=== PATIENT | female | born 1980 | race Caucasian/White ===

== ENCOUNTER → 2017-06-20 | Outpatient (REF) | payer BC ==
[2017-06-20 19:08] LABS: TOTAL T3 111.7 NG/DL (60.0-181.0)
[2017-06-21 11:03] LABS: CORTISOL AM 23.3 UG/DL (4.3-22.4)
== END ==
LOC: M LAB REF 17:15
DX: E66.9 Obesity, unspecified (principal); R53.83 Other fatigue; R03.0 Elevated blood-pressure reading, without diagnosis of hypertension
CPT/HCPCS: 84480

== ENCOUNTER → 2020-04-03 | Outpatient (CLI) | payer BC ==
[~2020-04-03] MED LIST: IBUP80TA PO; PERCOCET PO; STUACAP PO
[2020-04-03 16:34] LABS: BASO # 0.1 10^3/uL (0.0-0.2); BASO % 0.5 % (0.0-1.0); EOS # 0.2 10^3/uL (0.0-0.5); EOS % 1.5 % (0.0-3.0); HEMOGLOBIN 14.9 g/dl (12.0-15.5); LYMPH # 2.2 10^3/uL (1.5-5.0); LYMPH % 22.1 % (24.0-44.0); MEAN CORPUSCULAR HEMOGLOBIN 29.7 pg (27.0-33.0); MEAN CORPUSCULAR HGB CONC 33.9 g/dl (32.0-36.5); MEAN CORPUSCULAR VOLUME 87.8 fl (80.0-96.0); MONO # 0.6 10^3/uL (0.0-0.8); MONO % 5.7 % (2.0-8.0); NEUTROPHILS # 6.9 10^3/uL (1.5-8.5); NEUTROPHILS % 69.6 % (36.0-66.0); PLATELET COUNT, AUTOMATED 254 10^3/uL (150-450); RED BLOOD COUNT 5.01 10^6/uL (4.00-5.40); WHITE BLOOD COUNT 9.9 10^3/uL (4.0-10.0)
[2020-04-03 17:05] LABS: ALT/SGPT 49 U/L (12-78); BILIRUBIN,TOTAL 0.5 MG/DL (0.2-1.0); BLOOD UREA NITROGEN 9 MG/DL (7-18); CALCIUM LEVEL 9.4 MG/DL (8.5-10.1); CARBON DIOXIDE LEVEL 29 MEQ/L (21-32); CHLORIDE LEVEL 103 MEQ/L (98-107); CHOLESTEROL LEVEL 315 MG/DL (<200); CHOLESTEROL RISK RATIO 6.176 (<5); CREATININE FOR GFR 0.84 MG/DL (0.55-1.30); FREE T4 1.01 NG/DL (0.76-1.46); GLOMERULAR FILTRATION RATE > 60.0 (>60); GLUCOSE, FASTING 83 MG/DL (70-100); HDL CHOLESTEROL 51 MG/DL (>40); LDL CHOLESTEROL 229 MG/DL (<100); NON-HDL-C 264 MG/DL; POTASSIUM SERUM 4.2 MEQ/L (3.5-5.1); SODIUM LEVEL 140 MEQ/L (136-145); TOTAL PROTEIN 7.1 GM/DL (6.4-8.2); TRIGLYCERIDES LEVEL 174 MG/DL (<150)
[2020-04-03 17:08] LABS: THYROID PEROXIDASE ANTIBODY < 28.0 U/ML (<60.0)
[2020-04-03 17:22] LABS: HEMOGLOBIN A1c 5.2 %
== END ==
LOC: M WUC 15:20
PROVIDERS: ATTEND Physician Assistant
DX: E66.8 Other obesity (principal)

== ENCOUNTER → 2020-04-18 | Outpatient (CLI) | payer BC, OTHER ==
--- NOTE | 2020-04-18 13:05 | REP ---
INDICATION: DYSMENORRHEA COMPARISON: None. TECHNIQUE: Transabdominal pelvic ultrasound followed by transvaginal examination for better evaluation of the endometrium and adnexa with color Doppler evaluation of the ovaries. FINDINGS: Bladder is under distended and currently measures 3.4 x 2.6 x 3.3 cm. Normal anteverted uterus measures 8.6 x 4.0 x 5.0 cm. The endometrial complex measures 3.0 mm thickness. No discrete uterine or endometrial abnormalities are appreciated. Bilateral ovaries are normal in appearance and vascularity without evidence for torsion. Right ovary measures 2.3 x 1.4 x 1.7 cm; R I = 0.66. Left ovary measures 2.1 x 1.1 x 1.6 cm; R I = 0.63. No pelvic fluid or adnexal mass lesion. IMPRESSION: Normal pelvic ultrasound <Electronically signed by John Rae > 04/18/20 [id number]
== END ==
LOC: M RAD 12:08
PROVIDERS: ATTEND Physician Assistant
DX: N94.6 Dysmenorrhea, unspecified (principal)

== ENCOUNTER → 2021-02-18 | Outpatient (REF) | LOC: M LABSMTC 11:54 | PROVIDERS: ATTEND Pediatrics | DX: Z11.52 Encounter for screening for COVID-19 (principal) ==

== ENCOUNTER → 2021-03-24 | Outpatient (CLI) | payer OTHER ==
[2021-03-24 16:48] LABS: ALBUMIN 4.2 GM/DL (3.2-5.2); ALT/SGPT 43 U/L (12-78); BILIRUBIN,TOTAL 0.5 MG/DL (0.2-1.0); BLOOD UREA NITROGEN 13 MG/DL (7-18); CALCIUM LEVEL 9.7 MG/DL (8.5-10.1); CARBON DIOXIDE LEVEL 29 MEQ/L (21-32); CHLORIDE LEVEL 103 MEQ/L (98-107); CHOLESTEROL LEVEL 217 MG/DL (<200); CHOLESTEROL RISK RATIO 3.741 (<5); CREATININE FOR GFR 0.88 MG/DL (0.55-1.30); FREE T4 0.96 NG/DL (0.76-1.46); GLOMERULAR FILTRATION RATE > 60.0 (>60); GLUCOSE, FASTING 87 MG/DL (70-100); HDL CHOLESTEROL 58 MG/DL (>40); LDL CHOLESTEROL 122 MG/DL (<100); NON-HDL-C 159 MG/DL; POTASSIUM SERUM 4.1 MEQ/L (3.5-5.1); SODIUM LEVEL 138 MEQ/L (136-145); TOTAL PROTEIN 7.2 GM/DL (6.4-8.2); TRIGLYCERIDES LEVEL 183 MG/DL (<150)
[2021-03-24 16:56] LABS: TOTAL 25(OH) VITAMIN D 26.6 NG/ML (30.0-100.0)
[2021-03-24 16:57] LABS: PROGESTERONE 0.21 NG/ML
[2021-03-24 16:58] LABS: ESTRADIOL < 19.0 PG/ML; FOLLICLE STIMULATING HORMONE 69.8 mIU/mL; LUTEINIZING HORMONE 53.3 mIU/mL; PROLACTIN 6.1 NG/ML
[2021-03-26 23:07] LABS: TESTOSTERONE FREE (DIRECT) 1.4 pg/mL (0.0-4.2)
== END ==
LOC: M WUC 11:09
PROVIDERS: ATTEND Family Medicine
DX: N91.1 Secondary amenorrhea (principal); E78.00 Pure hypercholesterolemia, unspecified; E55.9 Vitamin D deficiency, unspecified

== ENCOUNTER → 2021-05-07 | Outpatient (CLI) | payer OTHER | LOC: M WUC 10:28 | PROVIDERS: ATTEND Family Medicine | DX: M79.672 Pain in left foot (principal) ==

== ENCOUNTER → 2022-01-11 | Outpatient (CLI) | payer OTHER | LOC: M WUC 08:54 | PROVIDERS: ATTEND Nurse Practitioner Adult Health | DX: E28.310 Symptomatic premature menopause (principal) ==

== ENCOUNTER → 2022-05-31 | Outpatient (REF) | payer OTHER | LOC: M LAB REF 17:11 | PROVIDERS: ATTEND Physician Assistant | DX: J02.9 Acute pharyngitis, unspecified (principal) ==

== ENCOUNTER → 2023-04-27 | Outpatient (CLI) | payer OTHER ==
[2023-04-27 10:39] LABS: THYROID STIMULATING HORMONE 4.235 uIU/ML (0.55-4.78)
[2023-04-27 10:40] LABS: THYROID PEROXIDASE ANTIBODY 47 U/ML (<60.0)
[2023-04-27 10:41] LABS: ESTRADIOL < 19.0 PG/ML; FREE T4 1.13 NG/DL (0.89-1.76)
[2023-04-27 11:00] LABS: HEMOGLOBIN A1c 5.2 % (4.0-6.0)
[2023-04-27 11:09] LABS: BASO % 0.5 % (0.0-1.0); EOS # 0.3 10^3/uL (0.0-0.5); EOS % 3.6 % (0.0-3.0); HEMATOCRIT 41.8 % (36.0-47.0); HEMOGLOBIN 14.5 g/dl (12.0-15.5); LYMPH # 2.2 10^3/uL (1.5-5.0); LYMPH % 26.8 % (24.0-44.0); MEAN CORPUSCULAR HEMOGLOBIN 30.9 pg (27.0-33.0); MEAN CORPUSCULAR HGB CONC 34.7 g/dl (32.0-36.5); MEAN CORPUSCULAR VOLUME 88.9 fl (80.0-96.0); MONO # 0.5 10^3/uL (0.0-0.8); MONO % 5.9 % (2.0-8.0); NEUTROPHILS # 5.1 10^3/uL (1.5-8.5); NEUTROPHILS % 62.8 % (36.0-66.0); PLATELET COUNT, AUTOMATED 225 10^3/uL (150-450)
== END ==
LOC: M WUC 08:31
PROVIDERS: ATTEND Specialist
DX: N91.5 Oligomenorrhea, unspecified (principal); E55.9 Vitamin D deficiency, unspecified; E03.9 Hypothyroidism, unspecified

== ENCOUNTER → 2024-05-01 | Outpatient (CLI) | payer OTHER | LOC: M RAD 07:35 | PROVIDERS: ATTEND Family Medicine | DX: R74.01 Elevation of levels of liver transaminase levels (principal) ==

== ENCOUNTER → 2024-09-26 | Outpatient (REF) | payer OTHER | LOC: M SFHCWAGY 15:09 | PROVIDERS: ATTEND Obstetrics & Gynecology | DX: N93.9 Abnormal uterine and vaginal bleeding, unspecified (principal) ==

== ENCOUNTER 2025-02-11 06:04 | Observation (INO) | payer OTHER ==
[~2025-02-11] VITALS: Ht 165.1 cm; Wt 133.1 kg
[~2025-02-11 06:04] MED LIST changes: +ERGO500029 PO; +ESTR1TAB PO; +IBUP-354 PO; +LOSA100T46 PO; +PROG1CAP8 PO; +ROSU10TA90 PO; +TIRZ7.5P3 SQ; +ceFAZolin SOD 2 GM IV ONCE IV ONE
[2025-02-11 06:55] LABS: PLATELET COUNT, AUTOMATED 250 10^3/uL (150-450)
[2025-02-11] MEDS ORDERED: LR 1,000 ML IV SCH ×3 (07:00→12:45)
[2025-02-11] MEDS ORDERED: SUGAMMADEX SODIUM 500 MG/5 ML VIAL As Ordered ONE (07:16)
[2025-02-11] MEDS ORDERED: MIDAZOLAM INJ 2 MG/2 ML VIAL As Ordered ONE (07:16)
[2025-02-11] MEDS ORDERED: HYDROmorphone HCL 2 MG/ML 1 ML VIAL As Ordered ONE (07:16)
[2025-02-11] MEDS ORDERED: dexAMETHasone 4 MG/ML 1 ML VIAL As Ordered ONE (07:17)
[2025-02-11] MEDS ORDERED: KETOROLAC 30 MG/ML 1 ML VIAL As Ordered ONE (07:17)
[2025-02-11] MEDS ORDERED: LIDOCAINE 2% 100 MG/5 ML SDV (FOR ANES.) As Ordered ONE (07:17)
[2025-02-11] MEDS ORDERED: ROCURONIUM BROMIDE 50MG/5ML VIAL As Ordered ONE (07:17)
[2025-02-11] MEDS ORDERED: ONDANSETRON 4MG/2ML VIAL As Ordered ONE (07:17)
[2025-02-11] MEDS: ceFAZolin SOD 3 GM in DEXTROSE 5% (D5W) MINI-BAG PLU 1... IV ONE (07:35)
[2025-02-11] MEDS ORDERED: ACETAMINOPHEN 1000MG/100ML IV BAG As Ordered ONE (07:57)
[2025-02-11] MEDS ORDERED: dexmedeTOMIDine (4 MCG/ML) 200 MCG/50 ML BTL As Ordered ONE (07:59)
[2025-02-11] MEDS ORDERED: PHENYLephrine 500MCG 5ML (100MCG/ML) SYRINGE As Ordered ONE (08:35)
[2025-02-11] MEDS: METHYLENE BLUE 0.5% (5 MG/ML) 10 ML AMP As Ordered ONE (08:39)
[2025-02-11] MEDS ORDERED: ONDANSETRON 4MG/2ML VIAL IV PRN ×3 (09:15→12:45)
[2025-02-11] MEDS ORDERED: MORPHINE 2 MG/ML 1 ML VIAL IV PRN (09:15)
[2025-02-11] MEDS ORDERED: HYDROMORPHONE HCL 0.5 MG/0.5 ML SYRINGE IV PRN (09:15)
[2025-02-11] MEDS ORDERED: OXYC1TAB23 PO (09:23)
[2025-02-11] MEDS ORDERED: ONDA-282 PO (09:24)
[2025-02-11] MEDS ORDERED: IBUP80TA PO (09:24)
[2025-02-11] MEDS ORDERED: COLA100C5 PO (09:25)
[2025-02-11] MEDS ORDERED: diphenhydrAMINE 50 MG/ML VIAL IV PRN (10:55)
[2025-02-11 12:30] VITALS: BP 109/59; TEMP 97.7; O2SAT 97
[2025-02-11] MEDS ORDERED: PERCOCET 5MG/325MG TAB PO PRN ×2 (12:45)
[2025-02-11] MEDS ORDERED: MORPHINE 4 MG/ML 1 ML VIAL IV PRN (12:45)
[2025-02-11 13:30] VITALS: BP 111/55; TEMP 97.8; O2SAT 94
[2025-02-11 14:30] VITALS: BP 110/59; TEMP 97.4; O2SAT 94
[2025-02-11] MEDS: KETOROLAC 30 MG/ML 1 ML VIAL IV SCH (15:13)
[2025-02-11 15:30] VITALS: BP 107/53; TEMP 98.3; O2SAT 97
[2025-02-11 20:00] VITALS: BP 125/60; TEMP 98.7; O2SAT 95
[2025-02-11] MEDS: DOCUSATE SODIUM 100 MG CAPSULE PO SCH (20:32)
[2025-02-12 00:10] VITALS: BP 127/57; TEMP 97.5; O2SAT 97
[2025-02-12 03:45] VITALS: BP 131/72; TEMP 97.8; O2SAT 97
[2025-02-12 08:25] VITALS: BP 126/63; TEMP 97.8; O2SAT 95
[2025-02-12] MEDS: IBUPROFEN 800 MG TAB PO SCH (11:00)
[2025-02-12] MEDS: FLUZONE VACCINE TRI PF(25-26) 0.5ML SYRINGE IM.IMMUN ONE (12:24)
== END 2025-02-12 12:50 | disposition home or self-care (01) ==
LOC: M SDC 06:04 → M PED 06:05
PROVIDERS: ADMIT Obstetrics & Gynecology; ATTEND Obstetrics & Gynecology
DX: N84.0 Polyp of corpus uteri (principal); N83.291 Other ovarian cyst, right side; N83.292 Other ovarian cyst, left side; N83.8 Other noninflammatory disorders of ovary, fallopian tube and broad ligament; R10.20 Pelvic and perineal pain unspecified side; Z68.42 Body mass index [BMI] 45.0-49.9, adult; Z88.1 Allergy status to other antibiotic agents; Z79.899 Other long term (current) drug therapy; F17.200 Nicotine dependence, unspecified, uncomplicated; Z23 Encounter for immunization
CPT/HCPCS: 36415; 58571; 81025; 85027; 86850; 86900; 86901; 88307; 90656; J0131; J0665; J0688; J1100; J1171; J1885; J2250; J2371; J2405; J2765; J3010; J3490; S2900